=== PATIENT | male | born 1955 | race Caucasian/White ===

== ENCOUNTER 2016-12-05 05:27 | Emergency (ER) | payer OTHER ==
--- NOTE | ~2016-12-05 | CT4 ---
[facility] A Service of [facility] & [facility] RADIOLOGY TEXT RESULTS PATIENT: YESENIA HAND LOCATION: [facility] : 53 UNIT #: [id number] AGE: [address]: Alexander Gtz MD SEX: M ORDER DR: [id number] [facility] [address] [place], [place] [address] [id number] E MR#: [id number] Acc #: [id number] NAME: YESENIA HAND. : 1955 SEX: M STUDY DATE/TIME: 12/05/2016 5:45 UNIT: [facility] ROOM: STUDY DESCRIPTION: CT Abd and Pelv Wo Cont Attending Physician: Alexander Gtz M.D. Ordering Physician: Alexander Gtz M.D. Primary Care Physician: Primary Care Physician No MEDICAL IMAGING REPORT This report is preliminary unless electronic signature is present EXAM CT abdomen and pelvis without contrast, 12/05/2016 at 05:45 HISTORY 61-year-old male with painful urination, possible kidney stone, mid to lower abdominal pain. No urination since 12/04/2016 in the afternoon. COMPARISON CT renal angiography, 08/03/2006 PROCEDURE 3.0 mm axial images from the lung bases through the lesser trochanters without intravenous or enteric contrast administration. Sagittal and coronal reformatted images were obtained. TECHNIQUE This CT exam was performed with one or more of the following radiation dose reduction techniques: automatic exposure control, adjustment of mA and/or kV according to patient size, and iterative reconstruction. FINDINGS ABDOMEN FINDINGS: There is moderate bilateral hydronephrosis and hydroureter. Urinary bladder is significantly distended with fluid. There is marked prostatic enlargement with nodular protrusion into the urinary bladder base. The prostate gland measures about 5.4 x 5.6 x 4.8 cm. The urinary bladder wall appears mildly thickened which may be due to chronic outlet obstruction. No renal or ureteral stone is identified. Severe emphysematous changes are present. No acute basilar airspace disease is seen. The liver, gallbladder, spleen, pancreas, adrenals are normal. Moderately advanced calcific atherosclerosis is seen within the abdominal aorta and common iliac arteries. Diverticular changes are present in the colon without evidence of acute diverticulitis. Appendix STS. [facility] A Service of [facility] & [facility] RADIOLOGY TEXT RESULTS PATIENT: YESENIA HAND LOCATION: [facility] : 53 UNIT #: [id number] AGE: [address]: Alexander Gtz MD SEX: M ORDER DR: is normal. PELVIS FINDINGS: Rectum is normal. No pelvic adenopathy or free fluid is identified. IMPRESSION 1. Marked prostatic enlargement protruding into urinary bladder base. The urinary bladder wall appears mildly and generally thickened, and there is significant urinary bladder distension with fluid. Constellation of findings suggests features of chronic outlet obstruction. 2. [id number]-hncopgey bilateral hydronephrosis and hydroureter without obstructing stone. 3. Uncomplicated colonic diverticulosis. 4. Normal appendix. 5. Advanced emphysema. Dictated by... Patt Flores M.D. THIS IS AN ELECTRONICALLY VERIFIED REPORT Patt Flores M.D. at 12/09/2016 8:38 AM Loly TD: 12/05/2016 11:06 JOB #: [id number] MEDICAL IMAGING REPORT Page 1 of 1 COPY
[2016-12-05 05:12] LABS: URINE SOURCE CLEAN CATCH
[2016-12-05 05:27] LABS: BASOPHIL# 0.1 X10e3 (0-0.3); BASOPHIL% 0.7 % (0-2.5); EOSINOPHIL# 0.1 X10e3 (0-0.7); EOSINOPHIL% 0.9 % (0.0-7.0); HEMATOCRIT 46.5 % (38.0-50.0); HEMOGLOBIN 15.4 gm/dL (13.0-16.0); LYMPHOCYTE# 0.6 X10e3 (1.0-3.5); LYMPHOCYTE% 6.7 % (17.0-45.0); MEAN CELL VOLUME 86.2 FL (83-96); MEAN CORPUSCULAR HEMOGLOBIN 28.6 PG (28-34); MEAN CORPUSCULAR HGB CONC 33.2 g/dL (30-36); MEAN PLATELET VOLUME 10.2 FL (6.5-11.5); MONOCYTE# 0.5 X10e3 (0-1.0); MONOCYTE% 5.2 % (3.0-12.0); NEUTROPHIL# 8.4 X10e3 (1.5-7.1); NEUTROPHIL% 86.5 % (40-75); PLATELET COUNT 148 X10e3 (140-420); RED BLOOD COUNT 5.39 X10e (3.90-5.60); RED CELL DISTRIBUTION WIDTH 14.1 % (11.0-15.5); WHITE BLOOD COUNT 9.7 X10e3 (4.0-10.5)
[~2016-12-05 05:27] MED LIST: AMLODIPINE BESY10 MG PO; AMLODIPINE BESYL5 MG PO; ASPIR-TRIN325 MG PO; ASPIRIN PO; BIDIL PO; BYSTOLIC10 MG; BYSTOLIC10 MG PO; CATAPRES-TTS-30.3 MG PO; COREG PO; FLOMAX0.4 M1 PO; HCTZ PO; HYDROCHLOROTHIA25 MG PO; LOTREL 5-20 MG1 CAP PO; NO MEDICATIONS; PERCOCET5/325; PHENERGAN25 MG; SIMVASTATIN40 MG PO; VALTURNA 300-321 TAB PO; ZOCOR10 MG PO
[2016-12-05 05:30] LABS: DIFF IND NO
[2016-12-05 05:35] LABS: URINE APPEARANCE SL HAZY; URINE BILIRUBIN NEG (NEG); URINE BLOOD 4+ (NEG); URINE COLOR YELLOW; URINE GLUCOSE NORM (NORM); URINE KETONE NEG (NEG); URINE LEUKOCYTE ESTERASE NEG (NEG); URINE NITRATE NEG (NEG); URINE PROTEIN 1+ (NEG); URINE UROBILINOGEN NORM (NORM)
[2016-12-05 05:37] LABS: CULTURE INDICATED? YES; U HYALINE CASTS AUWI 0-2 /[LPF]; URBCS1 AUWI 200-300 /[HPF] (0-2); URINE BACTERIA AUWI 3+ (NEGATIVE); URINE SQUAMOUS EPITHELIAL CELL NONE SEEN /[HPF]; UWBCS1 AUWI 25-50 (0-5)
[2016-12-05 05:54] LABS: BLOOD UREA NITROGEN 19 mg/dL (9-23); CALCIUM SERUM 8.6 mg/dL (8.4-10.2); CARBON DIOXIDE 24 mmol/L (22-31); CHLORIDE 106 mmol/L (100-111); GLOM FILT RATE Estimated ABOVE60 mL/min (>60); GLUCOSE FASTING 125 mg/dL (70-110); POTASSIUM 3.2 mmol/L (3.5-5.1); SODIUM 131 mmol/L (135-145)
== END 2016-12-05 06:47 | disposition home or self-care (01) ==
LOC: CED 05:27
PROVIDERS: Emergency Medicine
DX: R33.0 Drug induced retention of urine (principal); R31.9 Hematuria, unspecified; F17.210 Nicotine dependence, cigarettes, uncomplicated; I50.9 Heart failure, unspecified; I25.10 Atherosclerotic heart disease of native coronary artery without angina pectoris; Z88.0 Allergy status to penicillin; Z88.1 Allergy status to other antibiotic agents; Z91.040 Latex allergy status
CPT/HCPCS: 51701; 51702; 74176; 80048; 81003; 85025; 87086; 87186; 99284

== ENCOUNTER 2016-12-17 05:25 | Emergency (ER) | payer OTHER ==
[2016-12-17 05:59] LABS: URINE SOURCE CLEAN CATCH
[2016-12-17 06:02] LABS: URINE APPEARANCE CLOUDY; URINE BLOOD 3+ (NEG); URINE COLOR RED; URINE GLUCOSE NEG (NEG); URINE KETONE NEG (NEG); URINE LEUKOCYTE ESTERASE 3+ (NEG); URINE NITRATE POS (NEG); URINE PH 6.5 (5-8); URINE PROTEIN 2+ (NEG); URINE SPECIFIC GRAVITY 1.007 (1.003-1.035); URINE UROBILINOGEN 0.2 MG/DL (NEG)
[2016-12-17 06:04] LABS: CULTURE INDICATED? YES; URBCS1 AUWI INNUM /[HPF] (0-2); URINE BACTERIA AUWI NEG (NEGATIVE); URINE SQUAMOUS EPITHELIAL CELL NONE SEEN /[HPF]; UWBCS1 AUWI 100-200 (0-5)
[2016-12-17 06:14] LABS: URINE BILIRUBIN NEG (NEG)
== END 2016-12-17 07:00 | disposition home or self-care (01) ==
LOC: CED 05:25
PROVIDERS: Nurse Practitioner
DX: R33.9 Retention of urine, unspecified (principal); R31.9 Hematuria, unspecified; I10 Essential (primary) hypertension; E78.5 Hyperlipidemia, unspecified; F17.210 Nicotine dependence, cigarettes, uncomplicated; Z79.899 Other long term (current) drug therapy; Z88.1 Allergy status to other antibiotic agents; Z88.0 Allergy status to penicillin; Z91.040 Latex allergy status
CPT/HCPCS: 51702; 81003; 87086; 96372; 99284; J1170

== ENCOUNTER 2016-12-29 23:59 | Emergency (ER) | payer OTHER ==
[2016-12-30 00:25] LABS: URINE SOURCE CLEAN CATCH
[2016-12-30 00:29] LABS: URINE APPEARANCE HAZY; URINE COLOR YELLOW; URINE GLUCOSE NORM (NEG); URINE KETONE NEG (NEG); URINE LEUKOCYTE ESTERASE 3+ (NEG); URINE NITRATE POS (NEG); URINE PROTEIN 1+ (NEG)
[2016-12-30 00:30] LABS: URINE BILIRUBIN NEG (NEG); URINE BLOOD NEG (NEG); URINE UROBILINOGEN NORM (NEG)
[2016-12-30 00:31] LABS: CULTURE INDICATED? YES; URBCS1 AUWI 25-50 /[HPF] (0-2); URINE BACTERIA AUWI 1+ (NEGATIVE); UWBCS1 AUWI 0-2 (0-5)
== END 2016-12-30 01:59 | disposition home or self-care (01) ==
LOC: CED 23:59
DX: R33.9 Retention of urine, unspecified (principal); F17.200 Nicotine dependence, unspecified, uncomplicated
CPT/HCPCS: 51702; 81003; 87086; 87088; 87186; 96372; 99284; J0696